=== PATIENT | male | born 1995 | race Two or more races ===

== ENCOUNTER 2021-06-13 15:10 | Outpatient (REF) | payer MEDICAID, SELFPAY ==
--- NOTE | ~2021-06-13 | XR_ITS ---
EXAMINATION: XR THORACIC SPINE CLINICAL INFORMATION: Dorsalgia COMPARISON: None TECHNIQUE: 3 views of the thoracic spine were obtained. FINDINGS: There is no fracture or bone destruction seen and the vertebral alignment is normal. There is no disc space narrowing. There is no abnormality of the paraspinal soft tissues. XR/XR thoracic spine 3V IMPRESSION: Unremarkable dorsal examination.
== END 2021-06-13 15:11 | disposition home or self-care (01) ==
LOC: HO.XRAY 15:10
PROVIDERS: Visit Provider Emergency Medicine
DX: M54.9 Dorsalgia, unspecified (principal)
CPT/HCPCS: 72072